=== PATIENT | male | born 1940 | race Caucasian/White ===

== ENCOUNTER → 2016-11-03 | Outpatient (CLI) | payer MEDICARE, BC ==
--- NOTE | ~2016-11-03 | CT57 ---
[facility] A Service of [facility] RADIOLOGY TEXT RESULTS PATIENT: BOBBI HELMS LOCATION: [facility] : 44 UNIT #: [id number] AGE: [address]: Dandre Amin MD SEX: M ORDER DR: [id number] [facility]. [place], [place] [address] [id number] O MR#: [id number] [facility] #: [id number] NAME: BOBBI HELMS : 1940 SEX: M STUDY DATE/TIME: 11/03/2016 13:15 UNIT: [facility] ROOM: STUDY DESCRIPTION: CT Chest Wo Cont Attending Physician: Dandre Amin M.D. Referring Physician: Dandre Amin M.D. Ordering Physician: Dandre mAin M.D. Primary Care Physician: Dandre Amin M.D. MEDICAL IMAGING REPORT This report is preliminary unless electronic signature is present EXAM CT of the chest without contrast 11/03/2016 INDICATIONS 75-year-old male with history of upper lobe nodule on chest x-ray, an outside institution this month. TECHNIQUE CT of the chest was performed without contrast. Coronal and sagittal reformatted images obtained. This CT exam was performed with one or more of the following radiation dose reduction techniques: automatic exposure control, adjustment of mA and/or kV according to patient size, and iterative reconstruction. COMPARISON STUDIES Compared with chest x-ray from 08/12/2010. The recent chest x-ray is not available for comparison nor any prior chest CTs. FINDINGS There are calcified granulomas in the left upper lobe. There is a tiny calcified granuloma in the right upper lobe and also right lower lobe. There is no suspicious pulmonary nodule. No lymphadenopathy. There are calcified mediastinal and hilar lymph nodes. Coronary artery calcification. No pleural effusion. Limited imaging of the upper abdomen is unremarkable. The bone windows are unremarkable. IMPRESSION There are tiny bilateral calcified granulomas. There is no evidence of a suspicious pulmonary nodule. Dictated by... Antolin Stephens M.D. [facility] A Service of [facility] RADIOLOGY TEXT RESULTS PATIENT: BOBBI HELMS LOCATION: [facility] : 44 UNIT #: [id number] AGE: [address]: Dandre Amin MD SEX: M ORDER DR: THIS IS AN ELECTRONICALLY VERIFIED REPORT Antolin Stephens M.D. at 11/03/2016 4:30 PM [place] TD: 11/03/2016 15:44 JOB #: [id number] MEDICAL IMAGING REPORT Page 1 of 1 COPY
== END | disposition home or self-care (01) ==
LOC: CCAT 12:38
DX: R91.1 Solitary pulmonary nodule (principal); J84.10 Pulmonary fibrosis, unspecified
CPT/HCPCS: 71250